=== PATIENT | male | born 1945 | race Caucasian/White ===

== ENCOUNTER 2023-11-16 06:12 | Observation (INO) ==
--- NOTE | 2023-10-21 13:21 | PAT Medication Instructions ---
Medication Instructions Date of Service October 21, 2023 Home Medications amiodarone 400 mg tablet 400 mg PO QAM apixaban 5 mg tablet (Eliquis) 5 mg PO BID aspirin 81 mg tablet,delayed release 81 mg PO QPM atorvastatin 80 mg tablet 80 mg PO QPM carvedilol 6.25 mg tablet 6.25 mg PO BID cholecalciferol (vitamin D3) 50 mcg (2,000 unit) capsule (Vitamin D3) 50 mcg PO QAM diltiazem HCl 240 mg capsule,extended release 24 hr, controlled 240 mg PO QAM losartan 100 mg tablet 100 mg PO QAM multivitamin 1 tab PO QAM omega-3 fatty acids 1,000 mg PO QAM ASK your prescriber and surgeon apixaban 5 mg tablet (Eliquis) 5 mg PO BID aspirin 81 mg tablet,delayed release 81 mg PO QPM STOP taking 2 weeks before surgery (or as soon as possible if surgery is within 2 weeks) omega-3 fatty acids 1,000 mg PO QAM DO NOT take the morning of surgery cholecalciferol (vitamin D3) 50 mcg (2,000 unit) capsule (Vitamin D3) 50 mcg PO QAM losartan 100 mg tablet 100 mg PO QAM multivitamin 1 tab PO QAM Take morning of surgery With a small sip of water, OTHERWISE NOTHING TO EAT OR DRINK AFTER MIDNIGHT: amiodarone 400 mg tablet 400 mg PO QAM carvedilol 6.25 mg tablet 6.25 mg PO BID diltiazem HCl 240 mg capsule,extended release 24 hr, controlled 240 mg PO QAM Take evening before surgery atorvastatin 80 mg tablet 80 mg PO QPM carvedilol 6.25 mg tablet 6.25 mg PO BID Other Notes If you have any questions please call us at [phone] or [phone] or [phone] or [phone]
--- NOTE | 2023-10-26 12:09 | Anesthesiology Consultation ---
Date of Service October 26, 2023 Assessment & Plan (1) Encounter for pre-operative examination: - cardiology clearance 10/21/23: "...yes patient is medically cleared for surgery..." - cardiology office visit 10/19/23: "...fractured his kneecap recently...no SOB or HAQUE...no orthopnea/PND...atrial fibrillation-paroxysmal, currently NSR, no palpitations...back on Eliquis for CVA in 2019-should remain on this. Given hx of CAD, flecainide discontinued last visit...will start multaq...CAD-s/p stent in 2005, with no clinical angina and good exercise tolerance, normal stress test in 06/2015...cardiac clearance-able to achieve 4 METS. Okay to clear for proposed upcoming surgery at an intermediate cardiac risk..." Chart Review Chart Review: Acceptable Risk for Surgery and Patient seen in Pre Admission Testing Teaching & Discussion Pre-Anesthesia Teaching/Discussion Notes: Instructed NPO after midnight before surgery, except medications with 15 cc of water. Medication instructions provided according to the PAT guidelines. History Surgery Operation Date: 11/16/23 07:00 Proposed Procedures p Arthroplasty Excision Patellar Button, Synovectomy Debridement Right Knee, Possible Partial Patellectomy Versus Suture Repair, Open Reduction Internal Fi xation - Govind Martines MD Height/Weight Height: 6 ft 2 in Weight: 114.5 kg Allergies Allergy/AdvReac Type Severity Reaction Status Date / Time No Known Allergies Allergy Verified 10/21/23 11:01 Medications Home Medications Medication Instructions Recorded Confirmed Last Taken amiodarone 400 mg tablet 400 mg PO QAM 10/21/23 10/21/23 Unknown apixaban 5 mg tablet (Eliquis) 5 mg PO BID 10/21/23 10/21/23 Unknown aspirin 81 mg tablet,delayed 81 mg PO QPM 10/21/23 10/21/23 Unknown release atorvastatin 80 mg tablet 80 mg PO QPM 10/21/23 10/21/23 Unknown carvedilol 6.25 mg tablet 6.25 mg PO BID 10/21/23 10/21/23 Unknown cholecalciferol (vitamin D3) 50 50 mcg PO QAM 10/21/23 10/21/23 Unknown mcg (2,000 unit) capsule (Vitamin D3) diltiazem HCl 240 mg 240 mg PO QAM 10/21/23 10/21/23 Unknown capsule,extended release 24 hr, controlled losartan 100 mg tablet 100 mg PO QAM 10/21/23 10/21/23 Unknown multivitamin 1 tab PO QAM 10/21/23 10/21/23 Unknown omega-3 fatty acids 1,000 mg PO QAM 10/21/23 10/21/23 Unknown Past Medical History Medical History (Updated 10/26/23 @ 12:12 by Kelsey Saldana PA-C) Atrial fibrillation on Eliquis Carotid artery disease < 50% stenosis left ICA on 2021 Doppler H/O nephrolithotomy with removal of calculi History of kidney stones History of prostate cancer surgery only History of stroke 2016>has mild balance problems since event Hx of myocardial infarction 2004>2 stents placed Hyperlipidemia Hypertension controlled, stable per pt Occipital stroke hx>2020 On anticoagulant therapy Presence of Watchman left atrial appendage closure device 2018 Psoriatic arthritis Sleep apnea BiPAP Patient denies h/o seizures, heart failure, DM, or blood transfusions. Exercise / Class Metabolic Activity III < 4 Walking/Shop/Light housework (ambulates with cane or walker depending on knee pain, denies chest chest discomfort or shortness of breath with usual activities ) Past Family History Family History Other No family history of adverse response to anesthesia Past Surgical History Surgical History (Updated 10/26/23 @ 12:23 by Kelsey Saldana PA-C) H/O prostatectomy History of cardiac cath x 2--2 stents placed in 2004 and 2018 Watchman device History of cataract surgery rt/left History of colonoscopy History of cystoscopy History of heart artery stent 2004>2 stents placed [facility] (followed Dr. Garcia) History of lithotripsy History of lumbar laminectomy History of repair of rotator cuff right History of total knee replacement right/left Past Anesthesia History No Hx of Anesthesia Complications and No Family Hx of Anesthesia Complications History of PONV No Hx of PONV and No Hx of Motion Sickness Social History Smoking Status: Former smoker Do You Dip or Chew Tobacco: No Smoking End Date: "only in my teen years" Hx Alcohol Use: Yes alcohol intake frequency: holidays/special occasions only substance use type: does not use Review of Systems Patient denies chest pain, shortness of breath, dyspnea on exertion, reflux, fever, chills, cough, wheezing, or palpitations. Physical Exam Vital Signs Vitals BP 129/80 P 56 TEMP 97.9 SP02 96% on RA RESP 17 Physical Patient resting comfortably in chair in no acute distress, alert and oriented, responding appropriately throughout visit Full cervical extension range of motion without pain TMD < 3 finger breadths Mallampati Score 2 Dentition: intact, denies chipped or loose teeth, caps/crowns, implants or bridges Lungs: normal respiratory effort. Good air movement, clear throughout to auscultation, no adventitious breath sounds Cardiac: regular rate and rhythm, no murmurs noted Carotid arteries: negative bruit bilat Lab Results Anesthesia Preop Results Results Anesthesia Widget: WBC 9.18 K/ul (4.8-10.8) 10/26/23 Hgb 15.1 g/dl (14.0-18.0) 10/26/23 Hct 45.0 % (42.0-52.0) 10/26/23 Plt 240 K/uL (130-400) 10/26/23 Na 141 mmol/L (136-145) 10/26/23 K 4.2 mmol/L (3.5-5.1) 10/26/23 Cl 104 mmol/L (98-107) 10/26/23 CO2 30 mmol/L (21-32) 10/26/23 BUN 25 mg/dl (6-23) H 10/26/23 Creat 1.32 mg/dl (0.6-1.4) 10/26/23 Glucose Level 105 mg/dl (70-99(Fasting)) H 10/26/23 PT 11.9 Seconds (9.0-12.0) 10/26/23 PTT 27 Seconds (21-31) 10/26/23 INR 1.1 (0.9-1.1) 10/26/23 Urine Color Dark Yellow 10/26/23 Urine Appearance Cloudy (Clear) A 10/26/23 Urine pH 5.0 (4.5-7.5) 10/26/23 Urine Specific [place] 1.031 (1.000-1.030) H 10/26/23 Urine Protein 2+ (Negative) H 10/26/23 Urine Glucose (UA) Negative (Negative) 10/26/23 Urine Ketones 1+ (Negative) H 10/26/23 Urine Blood 2+ (Negative) H 10/26/23 Urine Nitrite Negative (Negative) 10/26/23 Urine Bilirubin 2+ (Negative) H 10/26/23 Urine Urobilinogen Negative (Negative) 10/26/23 Urine Leukocyte Esterase 1+ (Negative) H 10/26/23 Urine WBC (Auto) 0-5 /hpf (0-5) 10/26/23 Urine RBC (Auto) >20 /hpf (0-2) H 10/26/23 Urine Hyaline Casts (Auto) >20 /lpf (0-2) H 10/26/23 Urine Epithelial Cells (Auto) 6-10 /hpf (0-2) H 10/26/23 Urine Bacteria (Auto) None Seen (None Seen) 10/26/23 Blood Type A Positive 10/26/23 Antibody Screen NEGATIVE 10/26/23 Testing Laboratory Results Surgeon's office made aware of abnormal UA. Electrocardiogram Date: 10/19/23 Sinus rhythm with rate 61 bpm First degree AV block Chest X-Ray Date: 10/26/23 No acute chest disease. Echocardiogram Date: 03/28/23 LVEF 54% Moderately dilated LV Borderline LVH Mildly enlarged LA Mildly dilated aortic root and ascending aorta at 4.3 cm Mild to moderate tricuspid regurgitation Moderate mitral regurgitation Mild aortic regurgitation Borderline pulmonary hypertension, the estimated PASP is 40 mmHg Trivial pericardial effusion Other Testing Carotid doppler 03/30/22 Mild left carotid disease with < 50% stenosis in the proximal ICA. The ICA is tortuous in the mid section. Normal right carotid duplex
--- NOTE | 2023-11-16 05:30 | History & Physical Bridge Note ---
Date of Service November 16, 2023 History & Physical Bridge Note I have examined the patient, reviewed the History & Physical and in the interval since the performance of the History & Physical I have noted the following changes of clinical significance: no changes noted
[~2023-11-16 06:12] MED LIST: ROPIVACAINE 0.5% HCL/PF 246 MG, Ketorolac (*for OR use only*) 30 MG, EPINEPHrine 30MG/3... INFIL SCH
[2023-11-16] MEDS ORDERED: ROPIVACAINE 0.5% 5 MG/ML 30 ML VIAL ONE (06:53)
[2023-11-16] MEDS: LR 15ML/HR IV SCH (06:59)
[2023-11-16] MEDS: LR 60ML/HR IV SCH (07:00)
[2023-11-16] MEDS ORDERED: ePHEDrine sulfate 50 MG/ML AMP IV PRN (07:14)
[2023-11-16] MEDS ORDERED: ATROPINE SULFATE 0.1 MG/ML 10ML SYR IV PRN (07:14)
[2023-11-16] MEDS ORDERED: DROPERIDOL 5 MG/2 ML VIAL IV PRN (07:14)
[2023-11-16] MEDS ORDERED: fentaNYL citrate PF 100 MCG/2 ML VIAL IV PRN (07:14)
[2023-11-16] MEDS ORDERED: MIDAZOLAM HCL 1 MG/ML 2ML VIAL ONE (07:37)
[2023-11-16] MEDS ORDERED: LIDOCAINE 2% 2 ML VIAL/AMP(20MG/ML) INFIL ONE (07:38)
[2023-11-16] MEDS ORDERED: PROPOFOL IV EMULSION 10 MG/ML 20 ML VIAL IV ONE (07:38)
[2023-11-16] MEDS ORDERED: fentaNYL citrate PF 100 MCG/2 ML VIAL ONE (07:38)
[2023-11-16] MEDS ORDERED: ONDANSETRON INJ 2 MG/ML 2 ML VIAL ONE (07:38)
[2023-11-16] MEDS ORDERED: DexMEDEtomidine HCL IV 100 MCG/ML VIAL IV ONE (08:12)
[2023-11-16] MEDS: ceFAZolin 3000MG 3,000 MG/72.5 ML BAG IV SCH (08:42)
[2023-11-16] MEDS ORDERED: TRANEXAMIC ACID / 0.7% NACL 1000MG/100ML BAG IV ONE (09:12)
[2023-11-16] MEDS: TRANEXAMIC ACID 100 MG/ML 10 ML VIAL IV ONE (09:13)
[2023-11-16] MEDS: ORTHO JOINT ANESTHETIC ONE (09:16)
[2023-11-16] MEDS ORDERED: ePHEDrine sulfate 50 MG/ML AMP ONE (09:37)
[2023-11-16] MEDS ORDERED: ePHEDrine sulfate 50 MG/5 ML SYR ONE (09:37)
[2023-11-16] MEDS: TRANEXAMIC ACID 1,000 MG **IV Intra-op IV SCH (09:45)
[2023-11-16] MEDS: ROPIVACAINE 0.5% HCL/PF 246 MG, Ketorolac (*for OR use only*) 30 MG, EPINEPHrine 30MG/3... INFIL SCH (09:57)
--- NOTE | 2023-11-16 10:04 | Post Operative Brief Note ---
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 Fluids See anesthesia report Complications None
--- NOTE | 2023-11-16 10:08 | Operative Report ---
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 I identified the patient and participated in the time-out.: Yes Procedure Operation Date: 11/16/23 08:50 Actual Procedures p Right Knee: Arthrotomy, Excision Loose Patellar Button, Extensive Synovectomy and Debridement, Partial Patellectomy, Extensor Mechanism Soft Tissue Balancing, Poly Exchange(Right) - Govind Martines MD Surgeon Govind Martines MD Returned Item Clerk Tim no resident or fellow available Estimated Blood Loss 75 Findings Consistent with Post-Op Diagnosis Poly wear tibia loose patellar button AVN patella multiple fractures with loose pieces extensive synovitis Fluids See anesthesia report Specimens Soft tissue pathology Drains None Complications None Indications Severe pain x-rays revealing AVN patella fracture patella with loose patellar button Description of Procedure After the patient was appropriate identified, site verified consent verified antibiotics confirmed as being given the right lower extremity was prepped and draped use routine fashion. The tourniquet was inflated to 275 mmHg for exsanguination limb with a rubber Esmarch bandage for total of 25 minutes. The old incision was utilized. Full-thickness flaps raised. Parapatellar arthrotomy performed based over one of the mobile segments of the patella. The segment was then excised. Full-thickness mobility of the extensor mechanism was performed. This allowed the patella to be everted there is no other loose pieces medially that that was excised. I left a large fragment laterally. The patella was then everted and debrided. The loose button was in the suprapatellar pouch it was removed. Complete synovectomy was performed. The knee was then flexed to 90 degrees 1 can see some medial wear of the poly it was removed this was then all cleaned out posteriorly and the permanent poly exchange it was the same size a size 7 9 mm thick. Engaged well and was verified. Wound was irrigated with Betadine prior to this and post. Was then Pulsavac. The extensor mechanism was then closed at 30 to 40 degrees of flexion advanced over itself to make up for some of the medial excision. This centralized the patella well. He limited lateral release was performed and then closed at the end in a lengthened fashion. Tourniquet was deflated prior to closure there was no extensive bleeding EBL was estimated at 75 cc. #2 Vicryl was used to close the extensor mechanism 2-0 Vicryl for the subcutaneous layer and standstill clips for skin appropriate dressing and Keegan Lau cotton dressing applied. DVT prophylaxis will resume in 24 hours. He will be full weightbearing flexion to tolerance not to exceed 90 degrees in the first 2 weeks to allow for wound healing. I attest to the content of the Intraoperative Record and any orders documented therein. Any exceptions are noted below.
--- NOTE | 2023-11-16 10:09 | Orthopedic Progress Note ---
Date of Service November 16, 2023 Orthopedic Progress Note Status post poly exchange excision patellar button loose partial patellectomy me rebalancing extensor mechanism and extensive synovectomy right knee tolerated well. Denies chest pain shortness of breath fever chills nausea vomiting headache. Vital signs are stable he is afebrile. Neurovascular check baseline. Will resume DVT PE prophylaxis tomorrow. Potential discharge tomorrow. Family contacted.
--- NOTE | 2023-11-16 10:11 | Discharge Summary ---
Date of Service November 17, 2023 Admission HPI Per Admitting Provider Painful right knee replacement with loose patellar button AVN patella multiple fractures and extensive synovitis Principal Diagnosis Extensive synovitis loose patellar button AVN patella with multiple fractures poly wear tibial implant Discharge Data Allergies Allergy/AdvReac Type Severity Reaction Status Date / Time No Known Allergies Allergy Verified 11/16/23 06:37 Vaccinations None Consultations None Procedures Performed Operation Date: 11/16/23 08:50 Actual Procedures p Right Knee: Arthrotomy, Excision Loose Patellar Button, Extensive Synovectomy and Debridement, Partial Patellectomy, Extensor Mechanism Soft Tissue Balancing, Poly Exchange(Right) - Govind Martines MD Ordered Studies X-rays soft tissue pathology Hospital Course (1) Status post right knee replacement: Continue care pathway careful wound management Total Time Total Time Spent Total Time Spent (In Minutes): 5 Discharge Plan Discharge Items Patient Disposition: Home - Home Health Services Reason For Visit: Right Knee Avascular Necrosis/Patella Fracture wit Discharge Diagnosis: Right knee s/p patellar button excision, synovectomy, and poly exchange Condition on Discharge: Good Activity: Per Instructions section Lifting: Wait until after follow-up appointment Bathing: Keep incision dry Sexual Activity: Wait until after follow-up appointment Exercise/Sports: Wait until after follow-up appointment Driving/Machine Use: No driving until cleared by Dr. Robledo Weightbearing: Full weightbearing Non-emergency contact: Surgeon Call non-emergency contact if: you have any medication questions, your pain is not controlled, your temperature is above 101.5, your wound has increased redness, your wound has increased drainage and your wound pain has increased Follow-up/Referrals: Mehul Dumont PA-C [Physician Surplus Property Disposal Agent] - 11/22/23 2:00 pm Emmanuel Cornelius M.D. [Primary Care Provider] - Diet: Heart Healthy Add Attending Provider Instructions: New Medicine: * You will likely be taking one or more of these medications: 1. Percocet - Take, as directed, when you need it, every four to six hours to control your pain. 2. Iron Sulfate - Take 1x each day for the month after surgery to help you replace the blood lost during surgery. 3. Eliquis - Thins your blood to lessen the chance of forming a blood clot. * The most common side effects of pain medicine and iron are nausea and constipation. If nausea or constipation is too much of a problem or if you have any questions about your new medicines or doses, call [facility] at . We will try to help you manage these issues. "VERY IMPORTANT TO READ AND REVIEW" Blood Clots and Blood Thinning Medicine: * You are given Eliquis during the immediate post-operative period to lessen the risk of blood clots forming in your legs and/or lungs. It is usually given for 4 weeks after surgery. Pain: * The immediate post-operative period after knee replacement surgery is often quite painful. * You are given a prescription for pain medicine. You should take it, as directed, when you need it, especially before physical therapy and before going to bed. Pain that interferes with sleep is very common and can last several months. * You will likely need pain medicine for the first four to six weeks. It will not stop all of the pain. The pain will lessen and as you feel better, you may change to milder pain medicine such as Tylenol. * The most common side effects of pain medicine are nausea and constipation, so don't take more than you need. Physical Therapy: * You will have physical therapy two or three times each week for four to six weeks after your surgery in order to regain your knee range of motion and to retrain your knee to work properly. * It is just as important to make sure you are getting your knee perfectly straight as it is to regain your knee bend. * Taking a pain pill an hour before therapy can help you have a more productive and comfortable therapy session if needed. Home Exercise: * You were shown a series of exercises (heel props, heel slides, etc.) in the hospital. Do these exercises three to four times each day including the exercises you were shown in physical therapy. Walking: * Get up and walk several times each day. For the first four weeks, try not to stand or walk for more than one hour at a time. If you do stand or walk for more than one hour, you will not hurt anything, but your knee and leg will likely swell. * As you feel comfortable, you may change from the walker or crutches to a cane and then to independent walking. SELF CARE INSTRUCTIONS AFTER TOTAL KNEE REPLACEMENT A. You may need to continue a physical therapy program after discharge from the hospital. There are several options available to you. Your doctor will assist you in selecting the best one for you. 1. An out-patient facility 2 to 3 times a week for therapy or home therapy. 2. Continue working on all exercises taught to you in the hospital. Your goals should be to increase bending of your knee to 90 degrees and beyond and to fully straighten your knee. B. You may progress at your own pace from walking with a walker or crutches to a cane; then to no assistive devices. C. Make walking a part of your daily routine. Be up as much as comfortable with rest periods throughout the day. Rest with leg elevation is very important. Use the ice wrap frequently for the first 3-4 weeks. D. There are no restrictions on activities. You may ride in a car, shop, participate in sap integration architect and all social activities. E. Wear the long elastic stockings (RUPINDER hose) 20 hours a day for six weeks after surgery. They can be removed several times a day for laundering and for a shower. F. Do not place a pillow behind your knee when resting. A pillow at your ankle is okay. VERY IMPORTANT TO READ AND REVIEW A. Take Eliquis (blood thinning medication) as directed by your doctor. B. There are a few signs you need to watch for after you are home. Call [facility] if you notice any of the followin. Increased severe knee pain. Some pain is expected especially when you exercise. 2. Increased swelling in your leg or knee; pain or swelling of the calf muscle in either lower leg. 3. Any fluid drainage from the incision. 4. Shortness of breath or chest pain. C. Please call [facility] at if you have any concerns or questions about your operation or recovery. The doctor or his nurse will return your call promptly. D. You must take antibiotics before dental work, bladder, bowel or other surgery. Call the office to obtain a prescription at least 2 days prior to your appointment. * CALL IF INCREASED PAIN, REDNESS, DRAINAGE OR FEVER GREATER THAT 101. * Sutures should be removed 15 days after surgery unless you are on chronic steroids, then it will be 18 days after surgery. Call your doctor if: * Temperature above 101 degrees F. * Pain not relieved by pain medicine ordered. * Increased drainage or redness from incision. * Notify your doctor with any questions or concerns. Use the knee immobilizer when out of bed and standing/walking on and Tuesday. He can be discontinued entirely on Tuesday. Use your walker for ambulation Ice and elevate the knee frequently to reduce pain and swelling Take your Eliquis 2 times per day. Follow-up in the office on Tuesday with Mehul for removal of the bandages. They should not be removed before then. DIET: * Resume previous diet. MEDICATIONS: * Please take your prescriptions as instructed at your pre-op appointment and/or see medication discharge instructions listed above. * If concerns develop, call your physician's office at . SPECIAL CARE INSTRUCTIONS: * Ice/Elevate as instructed. * Keep dressing clean, dry, intact. * Your surgical extremity may be discolored due to prepping agents used on the skin. A bluish-green tint is a normal variant and should not cause alarm. Call your doctor at [phone] if: * Temperature above 101 degrees * Pain not relieved by pain medicine ordered * There is increased drainage or redness from any incision * You have any unanswered questions, problems or concerns. FOLLOW UP VISIT: * If not already scheduled, please call the office at to schedule a follow-up appointment. Pending Studies at Discharge: Yes (Soft tissue pathology) Studies:: bone pathology Stand-Alone Forms: My [facility], Smoking Cessation Medications and DC Order Prescriptions: No Action multivitamin Tablet 1 tab PO QAM atorvastatin 80 mg Tablet 80 mg PO QPM carvedilol 6.25 mg Tablet 6.25 mg PO BID Rx Instructions: must administer with a meal/food diltiazem HCl [Diltia XT] 240 mg Capsule,Ext.Rel 24h Degradable 240 mg PO QAM aspirin [Aspir-81] 81 mg Tablet,Delayed Release (Dr/Ec) 81 mg PO QPM amiodarone 400 mg Tablet 400 mg PO QAM losartan 100 mg Tablet 100 mg PO QAM [place] 3 Fish Oil Capsule 1,000 mg PO QAM cholecalciferol (vitamin D3) [Vitamin D3] 50 mcg (2,000 unit) Capsule 50 mcg PO QAM Eliquis 5 mg Tablet 5 mg PO BID Admission Data Admit Date/Time: 11/16/23 10:18 Attending Provider: Govind Martines Admit Provider: Govind Martines Primary Care Provider: Emmanuel Cornelius
--- NOTE | 2023-11-16 10:11 | Operative Report ---
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 I identified the patient and participated in the time-out.: Yes Procedure Operation Date: 11/16/23 08:50 Actual Procedures p Right Knee: Arthrotomy, Excision Loose Patellar Button, Extensive Synovectomy and Debridement, Partial Patellectomy, Extensor Mechanism Soft Tissue Balancing, Poly Exchange(Right) - Govind Martines MD Surgeon MUNIRA Martines MD Horticulture Worker Tim BRADLEY no resident or fellow available Estimated Blood Loss 75 Findings Consistent with Post-Op Diagnosis see operative report Specimens see operative report Drains none Complications none Disposition Accompanied Patient To Recovery: Yes Indications This 78 year old male presented to the office with complaints of persisting right knee pain after falling on a previous total knee arthroplasty done elsewhere. He had tried conservative care measures without improvement. He elected to proceed with surgical intervention after being educated about potential risks and outcomes. Preoperative imaging was obtained. Description of Procedure The patient was administered a regional block and then taken to the operating room where he was given general anesthesia. He was prepped and draped in usual sterile fashion. Please see Dr. Finn's operative report for specifics of the procedure. I was present for the entire case from initial patient positioning through final closure. Assistance was provided in tissue retraction, hemostasis, hardware removal, and final wound closure. The patient was taken to the recovery room in satisfactory condition. I attest to the content of the Intraoperative Record and any orders documented therein. Any exceptions are noted below.
[2023-11-16] MEDS ORDERED: HYDROmorphone INJ 0.5 MG/0.5 ML SYR IV PRN (11:35)
[2023-11-16] MEDS ORDERED: oxyCODONE HCL IR 5 MG TAB (IMMEDIATE RELEASE) PO PRN (11:35)
[2023-11-16] MEDS ORDERED: TAMSULOSIN HCL 0.4 MG CAP PO PRN (11:35)
[2023-11-16] MEDS ORDERED: METOCLOPRAMIDE HCL INJ 5 MG/ML 2 ML VIAL IV PRN (11:35)
[2023-11-16] MEDS ORDERED: MAGNESIUM HYDROXIDE SUSP 30 ML UDC PO PRN (11:35)
[2023-11-16] MEDS ORDERED: diphenhydrAMINE 50 MG/ML VIAL IV PRN (11:35)
[2023-11-16] MEDS ORDERED: ONDANSETRON INJ 2 MG/ML 2 ML VIAL IV PRN (11:35)
[2023-11-16] MEDS ORDERED: bisacodyL 10 MG SUPP PR PRN (11:35)
[2023-11-16] MEDS ORDERED: ALUMINUM/MAGNESIUM SUSP 30 ML UDC PO PRN (11:35)
[2023-11-16] MEDS ORDERED: NALOXONE HCL 0.4 MG/1 ML VIAL/CARP IV PRN (11:35)
[2023-11-16] MEDS ORDERED: VANCOMYCIN CONSULT ACTIVE PRN (11:35)
[2023-11-16] MEDS: SODIUM CHLORIDE 0.9% 1,000 ML IV SCH (11:50)
--- NOTE | 2023-11-16 11:52 | Anesthesiology Progress Note ---
Date of Service November 16, 2023 Anesthesia Post Procedure Vital Signs Vital Signs: Temp Pulse Pulse Resp BP Pulse Ox O2 Del Method 11/16/23 11:35 36.4 C L 69 17 160/95 H 94 Room Air 11/16/23 10:55 67 12 167/97 H 92 Nasal Cannula 11/16/23 10:45 69 12 163/95 H 95 Nasal Cannula 11/16/23 10:35 36.4 C L 70 18 153/97 H 94 Nasal Cannula 11/16/23 10:25 71 21 166/98 H 95 Nasal Cannula 11/16/23 10:15 75 20 164/96 H 98 Oxymask 11/16/23 10:08 36.1 C L 71 14 152/91 H 95 Oxymask 11/16/23 06:41 36.6 C 71 18 190/101 H 95 Room Air O2 Flow Rate 11/16/23 11:35 11/16/23 10:55 2 11/16/23 10:45 2 11/16/23 10:35 2 11/16/23 10:25 2 11/16/23 10:15 6 11/16/23 10:08 6 11/16/23 06:41 Transfer of Care Handoff Completed per policy Notes Mental Status: alert / awake / arousable Patient Amnestic to Procedure: Yes Nausea / Vomiting: adequately controlled Pain: adequately controlled Airway Patency, RR, SpO2: stable & adequate BP & HR: stable & adequate Hydration State: stable & adequate Anesthetic Complications: no major complications apparent and Pt Satisfied with anesthetic care
--- NOTE | 2023-11-16 11:54 | XRay Report ---
XR knee RT 1 or 2V routine CLINICAL HISTORY: S/P poly excahnge partial patellectomy COMPARISON STUDY: Right knee 10/19/2023. FINDINGS: There is again noted a right total knee arthroplasty. Postoperative changes suggestive of a partial resection of the patella. Anterior skin oscar are in place. Since anterior soft tissue swe lling likely due to the postoperative change. IMPRESSION: Status post partial patellar resection. ACT 112: Negative or not required by law. Electronically signed by: Jax Hernandez M.D. 11/16/2023 11:52 AM
[2023-11-16] MEDS: hydrALAZINE 10 MG TAB PO STA (12:49)
[2023-11-16] MEDS: ACETAMINOPHEN 500 MG TAB PO SCH (13:35)
--- NOTE | 2023-11-16 14:17 | Orthopedic Progress Note ---
Date of Service November 16, 2023 Assessment & Plan Admission and Anticipated Discharge Date Admission Date: November 16, 2023 Orthopedic Progress Note Afternoon rounds checked. Patient is doing well sitting up in bed. Denies chest pain shortness of breath fever chills nausea vomiting headache. Vital signs are stable he is afebrile. Neurovascular check femoral sciatic nerve is normal. Wound dressing clean dry a nd intact. Can do straight leg raise can do heel slides to 30 to 40 degrees easily. Assessment doing well continue postop care pathway initiate anticoagulation tomorrow. Responded well to the hydralazine. Plan is to continue present medications at this point in time discontinue IV fluid. Initiate care management for home discharge tomorrow. Knee immobilizer for 48 hours while he is ambulating.
[2023-11-16] MEDS: ceFAZolin 2000MG 2,000 MG/15 ML SYR IV SCH (16:55)
[2023-11-16] MEDS: ASCORBIC ACID 500 MG TAB PO SCH (17:12)
[2023-11-16] MEDS: FERROUS GLUCONATE 324 MG TAB PO SCH (17:12)
[2023-11-16] MEDS: carvediloL 6.25 MG TAB PO SCH (17:12)
--- OUTSIDE RECORDS SUMMARY | 2023-11-16 17:55 | External Medical Summary | Continuity of Care Document ---
Author Name Unknown Organization [id number] Address [address] [place] [id number] Care Team Providers Care Shipping/Receiving Manager Name Role Phone Emmanuel Cornelius Primary Care Physician [phone] [id number] Date[facility] 10/26/23 - 10/26/23 [facility] [address] [id number] [facility] Medicine [address] [place] [id number] Encounter Diagnosis Loose right total knee arthroplasty(Discharge Diagnosis) - 10/26/23 Discharge Disposition: Home or Self Care Attending Physician: KIRK Dumont, Mehul Cerrato Referring Physician: MD Cornad, Govind Browning Allergies, Adverse Reactions, Alerts No Known Medication Allergies Medications amiodarone 400 mg oral tablet Start: 10/19/23 2:39:00 PM EDT, 1 tab, PO, Daily Start Date: 10/19/23 Status: Ordered aspirin 81 mg oral delayed release tablet Start: 10/19/23 2:40:00 PM EDT, 1 tab, PO, Daily Start Date: 10/19/23 Status: Ordered atorvastatin 80 mg oral tablet Start: 10/19/23 2:39:00 PM EDT, 1 tab, PO, Daily Start Date: 10/19/23 Status: Ordered Cartia XT 240 mg/24 hours oral capsule, extended release Start: 10/19/23 2:40:00 PM EDT, 1 cap, PO, Daily Start Date: 10/19/23 Status: Ordered clindamycin 300 mg oral capsule Start: 10/19/23 2:44:00 PM EDT Start Date: 10/19/23 Status: Ordered Eliquis 5 mg oral tablet Start: 10/19/23 2:41:00 PM EDT, 1 tab, PO, bid Start Date: 10/19/23 Status: Ordered Fish Oil oral capsule Start: 10/19/23 2:41:00 PM EDT Start Date: 10/19/23 Status: Ordered losartan Start: 10/19/23 2:41:00 PM EDT, PO, Daily Start Date: 10/19/23 Status: Ordered multivitamin Start: 10/19/23 2:40:00 PM EDT, 1 tab, PO, Daily Start Date: 10/19/23 Status: Ordered Vitamin D3 50 mcg (2000 intl units) oral tablet Start: 10/19/23 2:41:00 PM EDT Start Date: 10/19/23 Status: Ordered Mental Status 10/26/23 Barriers to Learning one year None evide nt Mandatory Health Literacy Documentation Yes Health Literacy Communication Barriers N ever Primary Language French Problem List Condition Confirmation Course Effective Dates Status Health St atus Informant Afib Confirmed Active Hypercholesteremia Confirmed Active Hypertension Confirmed Active Obesity Confirmed Active Diagnosis Diagnosis Type Effective Dates Health Status Clinical Service Informant Loose right total knee arthroplasty Discharge Diagnosis 10/26/23 Procedures Procedure Date Related Diagnosis Body Site Status Cataract surgery Complete d Knee replacement 1 Comple velia REMOVAL OF PROSTATE Compl eted Rotator cuff repair Compl eted Stent Completed 1bilateral Social History Social History Type Response Smoking Status Never smoked cigaret dior Sex Male Pre-OP H & P * KIRK Dumont, Mehul D: PERFORM, MODIFY, MODIFY, MODIFY Event Display: Pre-OP H & P Authored Date: [id number] PRE-OPERATIVE HISTORY AND PHYSICAL Name: REGI SHIPLEY Patient Number: [id number] : 1945 Date of Service: 10/26/2023 PRE-OP Diagnosis: Right knee patellar fracture with AVN, and loose patellar button Planned Procedure: Right knee total knee arthroplasty arthrotomy, excision of patellar button, synovectomy, debridement, possible partial patellectomy versus suture repair/open reduction internal fixation Chief Complaint: Right knee pain and swelling History of Present Illness (including history relevant to procedure): This 78-year-old male presents today for his preoperative history and physical. He is scheduled to undergo a right knee total knee arthroplasty arthrotomy, excision of patellar button, synovectomy, debridement, possible partial patellectomy me versus suture repair/open reduction internal fixation on 11/16/[address] Martines. He has had knee pain since July 07 of this year. He has a history of right total knee arthro[place] [address] Frankel in [place]. He states he did well for many years. Last year he tripped in his shop and fell, landing on the right knee. There was significant pain at that time. It resolved and he had no residual effects. He fell again July 07 and had some knee pain, but the knee never felt right after that fall. He believes it became swollen at that time. He was able to vacationin [place] and states he rode his bicycle 1400 miles while there. His states he complained of knee pain almost daily despite his good function. Approximately 4 weeks ago he was at the gym and ellyn lized he could not ride a stationary bike due to his anterior knee pain. He denies any numbness or tingling. He cannot fully straighten his leg actively. Preoperative imaging has been obtained. Review Of Systems: A total of 10 systems were reviewed and are significant only for below-stated conditions. Family history: Significant for heart disease. His parents are . Social history: The patient is retired. 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 . No tobacco use. Quit in 1969. No EtOH use. Past Medical History: Problems: Obesity Hypercholesteremia Hypertension Afib History of [place] 2004 Sleep apnea Use of CPAP stroke 2016 Rheumatoid arthritis Chronic low back pain Obesity Kidney stones History of prostate cancer Procedure History Procedure Procedure Date Comments REMOVAL OF PROSTATE Cataract surgery Knee replacement 2016 L, 2017 R - bilateral Rotator cuff repair Cardiac stent Herniorrhaphy Ureteroscopy Low back surgery Watchman placement Allergies and Sensitivities: No Known Medication Allergies Current Home Meds: (Last Updated 10/25 11:00) amiodarone (amiodarone 400 mg oral tablet) 400 mg PO Daily apixaban (Eliquis 5 mg oral tablet) 5 mg PO bid aspirin (aspirin 81 mg oral delayed release tablet) 81 mg PO Daily atorvastatin (atorvastatin 80 mg oral tablet) 80 mg PO Daily cholecalciferol (Vitamin D3 50 mcg (2000 intl units) oral tablet) clindamycin (clindamycin 300 mg oral capsule) dilTIAZem (Cartia XT 240 mg/24 hours oral capsule, extended release) 240 mg PO Daily losartan PO Daily multivitamin 1 tab PO Daily omega-3 polyunsaturated fatty acids (Fish Oil oral capsule) No Vital Signs Data Available Initial Wt: No Data Available Physical Exam: (relevant to the procedure, including heart and lung evaluation) General: Well-developed, well-nourished, elderly male, in no acute distress. Sitting in a chair. Alert and oriented. Obvious discomfort. Ambulating with a slow antalgic gait using his walker. HEENT: Normocephalic, atraumatic. Eyes PERRLA, EOMI. Nares patent bilaterally without nasal drainage. Oropharynx with moist oral mucosa. Fair dentition. Neck: No JVD. Cardiac: Mostly regular rhythm today. Occasional irregular beats. No MGR. Peripheral pulses are 2+. Lungs: Clear to auscultation bilaterally. No crackles, rhonchi, or wheezing. Good air movement. Abdomen: Obese. Bowel sounds present x 4. Soft nontender. No organomegaly. No masses. Extremities: Right knee evaluation reveals the above-stated intra-articular effusion. He has flexion to 100 degrees, lacks approximate 15 degrees of terminal extension. He is able to do a straight leg raise with the extension lag. Quadriceps tendon and patellar tendon are palpable and intact. Stable collateral ligaments. He has focal discomfort with palpation over the patellar tendon at the jointline and just inferior to it. No pain over the tibial tubercle. No pain with palpation over his quadriceps tendon or quadriceps muscle. Limited patellar mobility. Ambulating today with an antalgic gait using the walker. Neuro: Gross sensation is intact across both lower extremities by soft touch. Skin: Warm and dry with good turgor. No rashes. Well-healed surgical scars are present on the anterior surface of both knees. Right knee has a significant intra-articular effusion today. No redness. Studies of radiology results (relevant to the procedure): Radiographic imaging previously obtained shows a thin patella with loose button and vertical fracture. MRI imaging confirms this. ASSESSMENT: Right knee patellar fracture with AVN, and loose patellar button Plan: Approximately 30 minutes was spent with the patient and his reviewing operative procedure, postoperative recovery, physical therapy requirements, and medication use. Postoperative prescriptions for Percocet and an antibiotic will be sent to his pharmacy upon discharge from the hospital. Anticipate discharge to home with home health services. He already has a walker and cane. He already has a raised toilet seat. He has already seen his PCP and non destructive testing supervisor for medical clearance. He will attend [facility] today for his preoperative lab work, EKG, and chest x-ray. Sed rate and CRP will be obtained today as well. He states he was in a swimming pool yesterday and did more activity than normal because his knee felt good. He is now feeling the residual effects of that with an even more swollen knee than when I saw him last. He is also using a walker today instead of his cane. PDMP was checked and there are no concerning findings. Informed written consent was obtained today. Postop follow-up appointment has been made with me for November 30. The patient will confirm his stop date for his Eliquis with Dr. Melgar. This dictation has been completed using [employer] text voice recognition software. Grammatical errors, omissions, insertions, and misspellings may be present due to the limitations of the software. Electronic Signature on File Electronically Reviewed/Signed by: Mehul Dumont PA-C Author Signature Dt/Tm:10/26/2023 05:23 PM Division of Sports Medicine Electronically Reviewed/Signed by: Govind Martines MD Cosigner Signature Dt/Tm: 10/27/2023 06:42 AM Wrapper Sorter for Clinical Affairs, [facility] Emerita Professor in Orthopaedics Sign Painter, [facility] Sports Medicine CDS Patient Care team information Care Team Personnel Name: MD Cornelius Darron Position: Referring DIRECT Member Role: Primary Care Provider Address: Address: [address] [place] [id number] [place]
[2023-11-16] MEDS: VANCOMYCIN HCL 1,750 MG in SODIUM CHLORIDE 0.9% 500 ML IV SCH (19:21)
[2023-11-16] MEDS: SENNA 8.6 MG TAB PO SCH (21:01)
[2023-11-16] MEDS: ATORVASTATIN 40 MG TAB PO SCH (21:02)
[2023-11-16] MEDS: DOCUSATE SODIUM 100 MG CAP PO SCH (21:02)
[2023-11-17 06:51] LABS: Hematocrit (blood only) 38.3 % (42.0-52.0); Hemoglobin 13.1 g/dl (14.0-18.0); Mean Corpuscular Hemoglobin 34.2 pg (25.0-34.0); Mean Corpuscular Hgb Conc 34.2 g/dL (32.0-36.0); Mean Platelet Volume 9.9 fL (9.4-12.4); Platelet Count 190 K/uL (130-400); RDW Coefficient of Variation 12.7 % (11.5-14.5); RDW Standard Deviation 46.7 fL (36.4-46.3); Red Blood Count 3.83 M/uL (4.70-6.10)
--- NOTE | 2023-11-17 06:53 | Orthopedic Progress Note ---
Date of Service November 17, 2023 Assessment & Plan Admission and Anticipated Discharge Date Admission Date: November 16, 2023 Orthopedic Progress Note Postop day #1 status post right knee revision poly exchange excision button and realignment of extensor mechanism with debridement of AVN and fragmentation of patella. He is pain is well-managed. He denies chest pain shortness of breath fever chills nausea vomiting or headache. Vital signs are stable he is afebrile. Neurovascular check femoral sciatic nerve is normal. He can do a straight leg raise. A.m. labs are pending. Assessment doing well discharged home today initiate anticoagulation today. Use knee immobilizer for the next 48 hours to protect his knee. Follow-up in 1 week for dressing change. Please apply bulky dressing today. Can initiate physical therapy tomorrow. Follow-up in a week for wound check. Likely leave oscar in anywhere from 15 to 21 days as this is a revision incision.
[2023-11-17 07:18] LABS: BUN Creatinine Ratio 24.3 (10-20); Calcium 8.2 mg/dl (8.6-10.3); Creatinine Clr Calc Pharmacy 78.2 ml/min; Est GFR (African American) 79.1 ml/min; Est GFR (Non-African American) 68.3 ml/min; Potassium 3.6 mmol/L (3.5-5.1)
[2023-11-17] MEDS: dexAMETHasone 10 MG in SYRINGE 0 ML IV SCH (07:39)
[2023-11-17] MEDS: LOSARTAN POTASSIUM 50 MG TAB PO SCH (08:32)
[2023-11-17] MEDS: dilTIAZem HCL 240 MG CAPCR PO SCH (08:32)
[2023-11-17] MEDS: MULTIVITAMIN TAB PO SCH (08:32)
[2023-11-17] MEDS: APIXABAN 2.5 MG TAB PO SCH (08:32)
[2023-11-17] MEDS: AMIODARONE 200 MG TAB PO SCH (08:32)
--- NOTE | 2023-11-17 09:39 | Orthopedic Progress Note ---
Date of Service November 17, 2023 Assessment & Plan (1) Status post right knee replacement: Plan: The patient was evaluated in his room. He was educated regarding today's findings. His postsurgical dressings were changed by me. A new long-leg padded dressing was applied, using gauze, ABDs, Kerlix, and Webril. He will be seen in the office on Tuesday at 2 PM for dressing change. Importance of leaving the knee immobilizer on when out of bed today and tomorrow was discussed at length. It may be discontinued entirely on Tuesday. Ice and elevate the leg frequently to reduce pain and swelling. Prescription for Percocet and Eliquis 2.5 mg were sent to his pharmacy. He will use the 2.5 mg twice daily for the immediate postoperative period. He will resume his normal presurgical dose in a few weeks. Outpatient PT has been set up. Call the office with any other concerns. Written discharge instructions were provided. His is aware. Admission and Anticipated Discharge Date Admission Date: November 16, 2023 Subjective This 78-year-old male seen today in his room. He is 1 day status post right knee patellar button excision, synovectomy, and poly exchange. He states he is doing well. He has minimal pain at this point. He is ready to participate in PT. He denies any chest pain, shortness of breath, nausea, vomiting, or abdominal pain. He feels ready for discharge to home. He plans on doing outpatient PT starting tomorrow. No other complaints. His is in attendance today. Review of Systems Review of Systems: Unchanged from yesterday. Physical Exam Physical Exam: General: Well-developed, well-nourished, elderly male, in no acute distress. Laying in bed. Alert and oriented. Skin: Warm and dry with good turgor. No rashes. Postsurgical dressing is in place on his right knee. There is some bleeding through the inner Nj wrap. Outer Nj wrap is dry. Musculoskeletal: The patient has intact motor function of his right hip, knee, and ankle. Range of motion of the knee is limited secondary to his bulky dressing. He is able to perform straight leg raise. Intact motor function to his ankle and toes. Neurologic: Gross sensation is intact across the right leg and foot by soft touch. Results & Data Vital Signs (Past 12 Hours) Vital Signs Temp Pulse Resp BP Pulse Ox O2 Del Method 11/17/23 06:57 36.5 C 71 16 158/94 H 92 Room Air 11/17/23 04:00 36.4 C L 71 18 163/96 H 92 Room Air 11/17/23 00:08 76 160/97 H 11/16/23 23:21 36.7 C 75 18 163/93 H 93 Room Air Laboratory Results CBC obtained today shows a white count of 12.6. H&H of 13.1 and 38.3. PRP shows normal electrolytes. Glucose this morning 116.
== END 2023-11-17 11:19 | disposition home or self-care (01) ==
LOC: ASU 06:12 → 3E 06:12